=== PATIENT | female | born 1950 | race Caucasian/White ===

== ENCOUNTER → 2017-03-26 | Outpatient (CLI) | payer OTHER | LOC: FCPNEURO 20:00 | PROVIDERS: ATTEND Psychiatry & Neurology Sleep Medicine | DX: G47.33 Obstructive sleep apnea (adult) (pediatric) (principal); G47.37 Central sleep apnea in conditions classified elsewhere ==

== ENCOUNTER 2017-04-20 07:20 | Day surgery (SDC) | payer OTHER ==
[2017-04-20] MEDS ORDERED: FAMOTIDINE 20 MG TAB PO ONE (07:24)
[2017-04-20] MEDS ORDERED: NS 1,000 ML IV ONE (07:24)
[2017-04-20] MEDS ORDERED: DIAZEPAM 5 MG TAB PO ONE (07:24)
[2017-04-20] MEDS ORDERED: ASPIRIN EC 325 MG TAB PO ONE (07:24)
[2017-04-20] MEDS ORDERED: diphenhydrAMINE 25 MG CAP PO ONE (07:24)
--- NOTE | 2017-04-20 07:44 | CPEKG ---
Heart Rate: 68 RR Interval: 882 P-R Interval: 176 QRSD Interval: 82 QT Interval: 392 QTC Interval: 417 P [place]: -3 QRS [place]: -2 T Wave [place]: 4 EKG Severity - BORDERLINE ECG - EKG Impression: SINUS RHYTHM EKG Impression: BORDERLINE T ABNORMALITIES, ANTERIOR LEADS Electronically Signed By: Ambrocio La 20-Apr-2017 09:35:47
[2017-04-20] MEDS ORDERED: FAMOTIDINE 20 MG TAB ONE (07:50)
[2017-04-20] MEDS ORDERED: DIAZEPAM 5 MG TAB ONE (07:50)
[2017-04-20] MEDS ORDERED: ASPIRIN 81 MG CHEWABLE TAB ONE (07:51)
[2017-04-20 07:56] LABS: PLATELET COUNT 304 10^3/uL (150-400)
[2017-04-20 08:08] LABS: INR 0.91 (0.83-1.16); PROTIME(PATIENT) 12.5 SEC (12.0-15.0)
--- NOTE | 2017-04-20 08:53 | PDPROPOC ---
Sedation Plan of Care Sedation Plan of Care: vital signs stable, mental status noted, patient educated of risks, benefits, alternatives, patient can tolerate sedation ASA Classification: ASA 2 Planned drugs: fentanyl, midazolam Mallampati Score: Class 2 Mallampati Reference Image: Patient passed 3-3-2 rule?: Yes
--- NOTE | 2017-04-20 08:54 | PDHPUP ---
History & Physical Update H&P update statement: This history and physical update is based on an assessment of the patient which was completed after admission or registration (within 24 hours), but prior to the surgery/procedure. H&P update: H&P reviewed & patient examined, no change in patient's condition since H&P completed
[2017-04-20] MEDS ORDERED: LIDOCAINE 1% 300 MG/30 ML SDV ONE (09:03)
[2017-04-20] MEDS ORDERED: MIDAZOLAM 2 MG/2 ML VIAL ONE (09:04)
[2017-04-20] MEDS ORDERED: fentaNYL 100 MCG/2 ML INJ ONE (09:04)
[2017-04-20] MEDS ORDERED: IOPAMIDOL (ISOVUE-370) 150 ML BTL IV ONE (09:04)
[2017-04-20] MEDS ORDERED: ONDANSETRON 4 MG/2 ML VIAL IVP PRN (10:00)
[2017-04-20] MEDS ORDERED: NITROGLYCERIN 0.4 MG BTL SL PRN (10:00)
[2017-04-20] MEDS ORDERED: ATROPINE SULFATE 1 MG/10 ML SYR IVP PRN (10:00)
[2017-04-20 12:52] VITALS: BP 112/78; RESP 15; O2SAT 90
--- NOTE | 2017-04-20 13:34 | CPIP ---
[f rep st] INVASIVE CARDIAC PROCEDURE DATE OF PROCEDURE: 04/20/2017 PROCEDURE: 1. Coronary angiography. 2. Left ventriculography. INDICATION: Dyspnea on exertion, concerning for class 3 anginal equivalent. ACCESS: The patient was prepped and draped in sterile fashion. 1% lidocaine was used to anesthetize the right inguinal region. A 6-Prydeinig introducer sheath was placed selectively into the right commo n femoral artery via modified Seldinger technique. CORONARY ANGIOGRAPHY: A 6-Prydeinig JL4 was advanced to the left main coronary artery and images obtain ed. The left main coronary artery bifurcated into an LAD and circumflex coronary arteries. The left main coronary artery was short. The left main coronary artery appeared normal. The left anterior d escending coronary artery gave rise to 2 small diagonal branches. The left anterior descending coron whit artery and its complement of diagonal branches appeared normal. The circumflex coronary artery i s a large size vessel. The circumflex coronary artery is nondominant. Circumflex coronary artery ga ve rise to 3 OM branches. The circumflex coronary artery and its complement of OM branches appeared normal. A 6-Prydeinig no-torque right catheter was advanced to the right coronary artery and images obt ained. The right coronary artery is dominant. The right coronary artery appeared normal. LEFT VENTRICULOGRAPHY: A 6-Prydeinig pigtail catheter was advanced in the left ventricle and images obt ained. Left ventricle is normal size, had normal systolic function, estimated ejection fraction 65%. The left ventricular end-diastolic pressure was elevated at 20 mmHg. COMPLICATIONS: None. CONCLUSIONS: 1. Normal coronary arteries. 2. Normal left ventricular size and systolic function. /[id number]/MODL
[2017-04-20] MEDS ORDERED: PANTOPRAZOLE SODIUM 40 MG TAB PO SCH (21:00)
[2017-04-21] MEDS ORDERED: LEVOTHYROXINE 25 MCG TAB PO SCH (06:00)
[2017-04-21] MEDS ORDERED: VENLAFAXINE XR 75 MG CAP PO SCH (09:00)
[2017-04-21] MEDS ORDERED: Herbals/Supplements -Info Only PO SCH (09:00)
[2017-04-21] MEDS ORDERED: ASPIRIN 81 MG CHEWABLE TAB PO SCH (09:00)
== END 2017-04-20 12:52 | disposition home or self-care (01) ==
LOC: FCATH 07:20
PROVIDERS: ATTEND Internal Medicine Cardiovascular Disease
PROC: 4A023N7 Measurement of Cardiac Sampling and Pressure, Left Heart, Percutaneous Approach (ICD-10-PCS; principal; 2017-04-20)
PROC: B2111ZZ Fluoroscopy of Multiple Coronary Arteries using Low Osmolar Contrast (ICD-10-PCS; principal; 2017-04-20)
DX: R06.09 Other forms of dyspnea (principal); E78.5 Hyperlipidemia, unspecified
CPT/HCPCS: C1760; J1644; J2250; J3010; Q9967